=== PATIENT | female | born 1940 | race Caucasian/White ===

== ENCOUNTER → 2017-04-10 | Outpatient (CLI) | payer MEDICARE ==
[~2017-04-10] MED LIST: LISI10TA3 PO
--- NOTE | 2017-04-11 20:53 | HM ---
Date Performed: 04/10/2017 Time Performed: 10:16:00 HOOKUP DATE: 04/10/17 10:16:00 AM Mon ANALYSIS START TIME: 04/10/2017 10:21:00 AM ANALYSIS END TIME: 04/11/2017 10:00:45 AM PATIENT AGE: 77 PATIENT HEIGHT PATIENT WEIGHT DRUG LIST PATIENT DIAGNOSIS: PALPITATIONS TEST NARRATIVE: The patient's average heart rate was 67 BPM. No episodes of tachycardia wer e noted. Heart rates less than 50 BPM were noted 3% of the time. No pauses exceeding 2.0 seconds were noted. 1780 ventricular ectopics, which represented 2% of the total beat count, were noted. The highest ventricular ectopic frequency occurred from 07:00 AM to 08:00 AM Tue. During this time 245 VE(s) occurred. Ventricular ectopics were observed as 1734 isolated beat(s), as 20 couplet(s) a nd as 2 run(s). Some of the ventricular beats occurred in bigeminal cycles. 290 supraventricular ectopics, which represented < 1% of the total beat count, were noted. The highest supraventricular ectopic frequency occurred from 07:00 PM to 08:00 PM Mon. During this time 120 SVE(s) occurred. Multiple episodes of ST depression (defined as -1.0 mm or more) were noted in channel 1. The maximu m depression of -2.0 mm occurred at 12:38:26 PM Mon. Multiple episodes of ST depression (defined as -1.0 mm or more) were noted in channel 2. The maximum depression of -1.9 mm occurred at 12:50:20 PM Mon. Multiple episodes of ST depression (defined as -1.0 mm or more) were noted in channel 3. The maximum depression of -2.1 mm occurred at 01:01:36 PM Mon. TEST INTERPRETATION: Agree with interpretation above. The predominant rhythm was sinus. The autumn ent had several episodes of bigeminy. Multiple couplets were noted. PAC"s were at times frequent. No ventricular run, pauses or atrial fibrillation was appreciated. No diary entry with any cardiac compl aint were recorded. Signed by : Duke Vail
== END ==
LOC: HCAV 09:27
PROVIDERS: ATTEND Family Medicine
DX: R00.2 Palpitations (principal)
CPT/HCPCS: 93225; 93226